=== PATIENT | female | born 1945 | race Caucasian/White ===

== ENCOUNTER 2017-12-04 06:59 | Day surgery (SDC) | payer OTHER ==
[~2017-12-04 06:59] MED LIST: ALTACE10 MG PO; AMLODIPINE BES2.5 MG PO; ASA81 MG PO; METOPROLOL SUCC25 MG PO; OMEGA-3100 MG PO; PRAVASTATIN SOD40 MG PO; ZANTAC300 MG PO
[2017-12-04] MEDS ORDERED: PERCOCET 5-3251 EACH PO (11:26)
== END 2017-12-04 16:50 | disposition home or self-care (01) ==
LOC: CIR.AMB 06:59
DX: C21.1 Malignant neoplasm of anal canal (principal)

== ENCOUNTER 2018-01-01 06:08 | Day surgery (SDC) | payer OTHER ==
[~2018-01-01 06:08] MED LIST changes: +PERCOCET 5-3251 EACH PO
[2018-01-01] MEDS ORDERED: PERCOCET 5-3251 EACH PO (10:45)
== END 2018-01-01 12:25 | disposition home or self-care (01) ==
LOC: CIR.AMB 06:08
DX: C21.1 Malignant neoplasm of anal canal (principal)
CPT/HCPCS: 36561; C1751

== ENCOUNTER 2018-04-26 06:07 | Day surgery (SDC) | payer OTHER | END 2018-04-26 10:55 | disposition home or self-care (01) | LOC: AMB-ENDOS 06:07 | DX: C21.1 Malignant neoplasm of anal canal (principal) ==

== ENCOUNTER 2019-02-04 05:42 | Day surgery (SDC) | payer OTHER ==
[~2019-02-04 05:42] MED LIST changes: +METROPLOL PO
[2019-02-04] MEDS ORDERED: PERCOCET 5-3251 EACH PO (07:47)
== END 2019-02-04 10:15 | disposition home or self-care (01) ==
LOC: CIR.AMB 05:42
DX: C21.1 Malignant neoplasm of anal canal (principal)